=== PATIENT | female | born 1945 | race Caucasian/White ===

== ENCOUNTER → 2020-07-19 | Outpatient (CLI) | payer MEDICARE ==
--- NOTE | 2020-07-19 13:17 | RAD ---
EXAM DESCRIPTION: Chest,2 Views CLINICAL HISTORY: 75 years Female, COVID COMPARISON: March 01, 2020 Findings: Two view(s)/radiograph(s) Median sternotomy. Cardiac silhouette and pulmonary vasculature are within normal limits. No pneumothorax. No pleural effusion. Patchy airspace opacities in the left midlung and left lung base. No acute osseous abnormality. IMPRESSION: Patchy airspace opacities in the left midlung and left lung base which may reflect atelectasis or pneumonia. Electronically signed by: Derrek Gonzales MD 07/19/2020 1:16 PM [facility]
== END ==
LOC: YCFC.O 11:26
PROVIDERS: ATTEND Nurse Practitioner Family
DX: U07.1 COVID-19 (principal)

== ENCOUNTER → 2020-08-02 | Outpatient (CLI) | payer MEDICARE, OTHER | LOC: YCFC.O 09:31 | PROVIDERS: ATTEND Nurse Practitioner Family | DX: U07.1 COVID-19 (principal) ==